=== PATIENT | female | born 1945 | race Caucasian/White ===

== ENCOUNTER 2019-07-06 05:17 | Inpatient (IN) | payer MEDICARE ==
[2019-07-04 15:17] LABS: BASOPHILS % 0.5 % (0.0-1.0); EOSINOPHILS # (AUTO) 0.1 (0.0-0.4); EOSINOPHILS % 0.9 % (0.0-6.0); HEMATOCRIT 45.2 % (34.2-44.1); HEMOGLOBIN 14.1 g/dL (12.0-16.0); LYMPHOCYTES # (AUTO) 1.3 (1.0-3.2); LYMPHOCYTES % 19.5 % (18.0-39.1); MEAN CORPUSCULAR HGB CONC 31.2 g/dL (31-35); MEAN CORPUSCULAR VOLUME 86.4 fL (81-99); MONOCYTES # (AUTO) 0.4 (0.2-0.8); MONOCYTES % 5.8 % (4.4-11.3); NEUTROPHILS # (AUTO) 4.8 (2.1-6.9); PLATELET COUNT 135 x10e3/uL (140-360); RED BLOOD COUNT 5.23 x10e6/uL (3.6-5.1)
[2019-07-04 15:27] LABS: INR 1.03; PROTHROMBIN TIME 13.7 seconds (11.9-14.5)
[2019-07-04 15:28] LABS: PARTIAL THROMBOPLASTIN TIME 31.2 seconds (23.8-35.5)
[2019-07-04 15:34] LABS: BLOOD UREA NITROGEN 16 mg/dL (7-26); BUN/CREATININE RATIO 21 (6-25); CALCIUM 9.3 mg/dL (8.4-10.2); CARBON DIOXIDE 27 mmol/L (22-29); CHLORIDE 103 mmol/L (98-107); CREATININE, SERUM 0.76 mg/dL (0.57-1.11); EST GLOMERULAR FILTRATION RATE > 60 ML/MIN (60-); GLUCOSE 103 mg/dL (74-118); SODIUM 141 mmol/L (136-145)
[2019-07-06] VITALS (11 sets, daily range): BP systolic 122–147; BP diastolic 45–61
[~2019-07-06] VITALS: Ht 167.6 cm; Wt 44.0 kg
[~2019-07-06 05:17] MED LIST: BACTROBAN OINT22 GM EXT; Z.0.TOPROL XL25 MG PO; Z.0.VICODIN 5-5001 E PO
--- OUTSIDE RECORDS SUMMARY | 2019-07-06 05:24 | XMS REPORT | Continuity of Care Document ---
Author Author [facility] Address [address] [place] [address] ;ext= Care Team Providers Care Thermal Molder Name Role Phone MARIFER GOLDBERG Admkyles MARIFER [facility] Admission Diagnosis Code Admission Diagnosis Date OTHER HYPERLIPIDEMIA Social History Element Description Code Description Smoking Status Code System Start Date End Date Smoking Status [id number] Current some day smoker SNOMED-CT Problems Code Code System Problem Name Start Date End Date Status 60190402 SNOMED-CT Contusion of chest 02/27/2018 Active 03979587 SNOMED-CT Abdominal pain 01/05/2017 Active 558042542 SNOMED-CT Dizziness 08/01/2016 Active 607812608 SNOMED-CT Syncope 07/31/2016 Active 12027209 SNOMED-CT Urinary tract infectious disease 07/31/2016 Active 659498736 SNOMED-CT Platelet count below reference range 2014 Active 25991401 SNOMED-CT Ventricular fibrillation 2015 Active 795216577 SNOMED-CT [place] Unknown Active 46504545 SNOMED-CT Myocardial infarction Unknown Active 66163332 SNOMED-CT Hypertensive disorder Unknown Active 45440930 SNOMED-CT Hyperlipidemia Unknown Active Medications RxNorm Medication Dose Route Instructions Indications Start Date End Date Status 064998 24 HR metoprolol succinate 25 MG Extended Release Oral Tablet 12.5 MG ORAL ORAL ONCE A DAY 11/26/2014 Active ASPIRIN TABLET CHEWABLE 81 MG ORAL ORAL ONCE A DAY 11/24/2014 Active 183671 atorvastatin 40 MG Oral Tablet 20 MG ORAL ORAL EVERY NIGHT AT BED TIME 11/24/2014 Active 736980 clopidogrel 75 MG Oral Tablet 75 milligram oral orally every day Active 07616 Lisinopril 2.5 milligram oral orally every day Active Allergies Code Code System Allergy Substance Type Reaction Severity Start Date End Date Status 7986 RXNorm Penicillins Drug allergy Swelling (Severe Allergic Rxn) Moderate Active 042306 RXNorm Levaquin Drug intolerance Syncope Moderate Active Results Laboratory Results Order: CMP COMPREHENSIVE METABOLIC PANEL Specimen Source: BLOOD Body Site: [facility] Test Result Flag Range Unit Date 1Glucose 109 75-110 mg/dl 04/27/2018 10:56 1BUN 15 6.0-17.0 mg/dl 04/27/2018 10:56 1Creatinine 0.6 0.4-1.2 mg/dl 04/27/2018 10:56 1Sodium 141 137-145 mmol/l 04/27/2018 10:56 1Potassium 4 3.5-5.0 mmol/l 04/27/2018 10:56 1Chloride 104 98-107 mmol/l 04/27/2018 10:56 1CO2 31 H 22-30 mmol/l 04/27/2018 10:56 1Calcium 9.1 8.4-10.2 mg/dl 04/27/2018 10:56 1T Protein 7.8 5.1-8.7 gm/dl 04/27/2018 10:56 1Albumin 4 3.5-4.6 gm/dl 04/27/2018 10:56 1A/G Ratio 1.1 1.1-2.2 % 04/27/2018 10:56 1AST (SGOT) 19 11-36 U/L 04/27/2018 10:56 1ALT (SGPT) 19 11-40 U/L 04/27/2018 10:56 1Alkaline Phos 135 H 47-114 U/L 04/27/2018 10:56 1Total Bilirubin 0.6 0.2-1.2 mg/dl 04/27/2018 10:56 1Globulin 3.8 H 2.3-3.5 gm/dl 04/27/2018 10:56 1Calcium, Corrected 9.1 8.4-10.2 mg/dl 04/27/2018 10:56 Note: Various formulas exist for corrected serum calcium results, each yielding different values. This corrected result was based on the formula: Corrected Calcium=SerumCalcium + [0.8 * ( 4 - SerumAlbumin)] 1EGFR if >60 mL/min/1.73m^2 04/27/2018 10:56 1EGFR if Non- >60 mL/min/1.73m^2 04/27/2018 10:56 Note: Estimated Glomerular Filtration Rate (eGFR) Reference Intervals Decision Points for 18 years and older and average body mass: >=60 Does not exclude kidney disease. 30 - 59 Suggests moderate chronic kidney disease and indicates the need for further investigation including assessment of proteinuria and cardiovascular factors. < 30 Usually indicates a need for referral for assessment and management of chronic kidney failure. * Performing Lab Footnotes:* [address] [place] [address] - [id number] [facility] [address] - MD: DIRECTOR WHIT MILLER Order: CORONARY RISK Specimen Source: BLOOD Body Site: [facility] Test Result Flag Range Unit Date 1Triglycerides 141 0-149 mg/dl 04/27/2018 10:56 Note: Trig. Interpretation Guide: Normal: < 150 mg/dl Borderline High: 150 - 199 mg/dl High: 200 - 499 mg/dl Very High: >=500 mg/dl 1Cholesterol 113 0-198 mg/dl 04/27/2018 10:56 1HDL 42 35-86 mg/dl 04/27/2018 10:56 77468-2 1Cholesterol.in LDL:MCnc:Pt:Ser/Plas:Qn:Direct assay 66 0-99 mg/dl 04/27/2018 10:56 Note: Direct LDL Intrepretations: Optimal: <100 mg/dl Suspect: 100 - 129 mg/dl Borderline: 130 - 159 mg/dl High: 160 - 189 mg/dl Very High: >190 mg/dl 1Risk Factor 2.7 0.0-4.4 04/27/2018 10:56 Note: Risk Factor Men Women Risk Factor 3.4 3.3 1/2 Average 5.0 4.4 Average 9.6 7.1 2X Average 24.0 11.0 3X Average 1vLDL 28 20-50 mg/dl 04/27/2018 10:56 * Performing Lab Footnotes:* [facility] - [id number] - [address] [place] [address] [place] - MD: DIRECTOR WHIT MILLER Vital Signs * No data in the system Advance Directives PT HAS NEITHER Directive Type Effective Date Lead Database Administrator Notes Supporting Document Name Address Phone No Directive Type specified 08/06/2012 21:27 Not Specified Not Specified Not Specified None No Patient does NOT have Living Will Directive Type Effective Date Lead Database Administrator Notes Supporting Document Name Address Phone No Directive Type specified 02/23/2017 10:23 Not Specified Not Specified Not Specified None No No Directive Type specified 02/23/2017 10:23 Not Specified Not Specified Not Specified None No Family History Relationship: Half Sister Health Problem Age At Onset Notes BREAST CANCER Relationship: Mother Health Problem Age At Onset Notes DIABETES Plan of Care * No data in the system Procedures * No data in the system Encounters * No data in the system Immunizations * No data in the system Functional Status * No data in the system Hospital Discharge Instructions * No data in the system
--- OUTSIDE RECORDS SUMMARY | 2019-07-06 05:24 | XMS REPORT ---
Author Author [facility] Address Unknown Phone Unavailable Care Team Providers Care Cell Operator Name Role Phone Omayra ESACLONA Unavailable Unavailable MOE DE LOS SANTOS Unavailable Unavailable Omayra GOLDBERG Unavailable Unavailable Mag [place]O Unavailable Unavailable Gloria GRAY Unavailable Unavailable OFELIA FRAZIER Unavailable Unavailable Problems This patient has no known problems. Allergies, Adverse Reactions, Alerts This patient has no known allergies or adverse reactions. Medications This patient has no known medications. Results Test Description Test Time Test Comments Text Results Atomic Results Result Comments THYROID 2019-06-21 08:43:00 [place] [address] Patient Name: SHAUN HANKINS MR #: [id number] : 1945 Age/Sex: 74/F Req #: [id number] Adm Physician: Ordered by: WANDA ESCALONA MD Report #: [id number] Location: Room/Bed: Procedure: [id number] US/US THYROID Exam Date: 06/20/19 Exam Time: 165 REPORT STATUS: Signed Thyroid ultrasound. History: Hyperthyroidism. Com parison: None available. Discussion: Transverse and longitudinal images of the thyroid were obtained demonstrating diffusely heterogeneous echogenicity of the thyroid. The right thyroid lobe measures 5.0 x 1.8 x 2.2 cm. An oval hyperechoic solid nodule is present in the upper pole measuring 1.6 x 1.2 x 1.6 cm. A second mass with large shadowing calcification is noted in the interpolar region measuring 1.7 x 1.6 x 2.1 cm. A third heterogeneous solid mass is present in the lower pole containing punctate calcifications measuring 2.9 x 1.8 x 2.1 cm. The left lobe measures 4.8 x 1.8 x 1.7 cm. An oval solid heterogeneous nodule is present in the interpolar region measuring 2.3 x 1.7 x 1.7 cm. The isthmus is within normal limits, measuring 2 mm. IMPRESSION: Multiple right and single left solid nodules. Ultrasound- guided FNA of the largest right and left lesion may be performed. Signed by: Abhishek Bryant on 06/21/2019 8:50 AM Dictated By: ABHISHEK BRYANT MD 0850 Transcribed By: KWAN on 06/21/19 0850 COPY TO: WANDA ESCALONA MD CTA NECK 2019-06-20 18:20:00 [place] [address] Patient Name: SHAUN HANKINS MR #: [id number] : 1945 Age/Sex: 74/F Req #: [id number] Adm Physician: Ordered by: MOE DE LOS SANTOS MD Report #: [id number] Location: CT Room/Bed: Procedure: [id number] CT/CTA NECK Exam Date: 06/20/19 Exam Time: 1720 REPORT STATUS: Signed CTA NECK HISTORY: Carotid stenosis COMPARISON: Thyroid ult rasound and chest radiograph 06/20/2019 TECHNIQUE: CTA of the neck was performed with intravenous iodine based contrast. Coronal, sagittal, and oblique maximum intensity projection reformations were created. One or more of the following dose reduction techniques were used: Automated exposure control, adjustment of the mA and/or kV according to patient size, and/or utilization of iterative reconstruction technique. DISCUSSION: If present, any cervical carotid stenosis will be measured as a percentage relative to the [place] artery distal to the stenosis (NASCET). There is diffuse calcified atherosclerosis throughout the aortic arch and proximal great vessels. Right Carotid: Surgical clips are seen adjacent to the right carotid bulb. Severe calcified plaque at the right carotid bulb causes severe, critical stenosis (up to 90%) of the proximal right internal carotid artery. Mild noncalcified plaque is seen throughout the right common carotid artery without significant stenosis. Left Carotid: Moderate calcified plaque at the left carotid bulb causes 50-69% focal stenosis in the proximal left internal carotid artery. Mild noncalcified plaque is seen throughout the left common carotid artery without significant stenosis. Right vertebral artery: Mild calcified plaque at the right vertebral artery ostium does not cause significant stenosis. Left vertebral artery: Mild calcified plaque in the left vertebral artery ostium and V2 segment does not cause significant stenosis. The intracranial arterial vasculature is is partially imaged. Minimal bilateral carotid siphon calcified plaque is present without significant stenosis. A small fenestration is seen in the lower basilar artery. Anterior communicating artery is present. Additional findings: There is mild generalized cerebral volume loss. Mild emphysematous changes are seen in the upper lungs. Multinodular, heterogeneous thyroid goiter can be correlated with ultrasound. There are mild to moderate degenerative changes throughout the spine. IMPRESSION: 1. Severe, up to 90% focal stenosis of the proximal right internal carotid artery due to calcified plaque. Surgical clips are seen adjacent to the right carotid bulb. 2. Focal 50-69% stenosis of the proximal left internal carotid artery due to calcified plaque. 3. Mild bilateral common carotid artery noncalcified plaque without significant stenosis. 4. Minimal bilateral cervical vertebral artery calcified plaque without significant stenosis. Signed by: Dr. Nolan Vo M.D. on 06/20/2019 6:36 PM Dictated By: NOLAN VO MD 35 Transcribed By: KWAN on 06/20/191835 COPY TO: MOE DE LOS SANTOS MD CHEST 2 VIEWS 2019-06-20 16:50:00 [facility] [place] [address] Patient Name: SHAUN HANKINS MR #: [id number] : 1945 Age/Sex: 74/F Req #: [id number] Adm Physician: Ordered by: WANDA ESCALONA MD Report #: [id number] Location: US Room/Bed: Procedure: [id number] DX/CHEST 2 VIEWS Exam Date: Exam Time: REPORT STATUS: Signed EXAMINATION: CHEST 2 VIEWS INDICATION: Weight loss COMPARISON: None FINDINGS: LINES/TUBES:None LUNGS:The lungs are hyperinflated. Mild bilateral upper lobe predominant emphysematous changes. No focal consolidation or pulmonary edema. PLEURA:No pleural effusion or pneumothorax. MEDIASTINUM:The cardiomediastinal silhouette appears normal in size and shape. Atherosclerotic calcifications of the thoracic aorta. BONES/SOFT TISSUES:No acute osseous injury. Degenerative changes of the visualized spine. ABDOMEN:No free air under the diaphragm. IMPRESSION: Hyperinflated lungs with emphysematous changes. No focal pneumonia or pulmonary edema. Signed by: Yoni Hubbard MD on 06/20/2019 4:51 PM Dictated By: YONI HUBBARD MD 50 Transcribed By: KWAN on 06/20/191650 COPY TO: WANDA ESCALONA MD CORONARY RISK 2018-04-27 11:32:00 Triglycerides (test code=TRIG) 141 mg/dl 0-149 Trig. Interpretation Guide: Normal: < 150 mg/dl Borderline High: 150 - 199 mg/dl High: 200 - 499 mg/dl Very High: >=500 mg/dl Cholesterol (test code=CHOL) 113 mg/dl 0-198 HDL (test code=HDL) 42 mg/dl 35-86 dLDL (test code=DILDL) 66 mg/dl 0-99 Direct LDL Intrepretations: Optimal: <100 mg/dl Suspect: 100 - 129 mg/dl Borderline: 130 - 159 mg/dl High: 160 - 189 mg/dl Very High: >190 mg/dl Risk Factor (test code=RFACT) 2.7 0.0-4.4 Risk Factor Men Women Risk Factor 3.4 3.3 1/2 Average 5.0 4.4 Average 9.6 7.1 2X Average 24.0 11.0 3X Average vLDL (test code=VLDL) 28 mg/dl 20-50 [id number] 11:31:00* Test Item Value Reference Range Comments Glucose (test code=GLU) 109 mg/dl 75-110 BUN (test code=BUN) 15.0 mg/dl 6.0-17.0 Creatinine (test code=CREA) 0.6 mg/dl 0.4-1.2 Sodium (test code=NA) 141 mmol/l 137-145 Potassium (test code=K) 4.0 mmol/l 3.5-5.0 Chloride (test code=CL) 104 mmol/l 98-107 CO2 (test code=CO2) 31 mmol/l 22-30 Calcium (test code=CALC) 9.1 mg/dl 8.4-10.2 T Protein (test code=TP) 7.8 gm/dl 5.1-8.7 Albumin (test code=ALB) 4.0 gm/dl 3.5-4.6 A/G Ratio (test code=AGRAT) 1.1 % 1.1-2.2 AST (SGOT) (test code=AST) 19 U/L 11-36 ALT (SGPT) (test code=ALT) 19 U/L 11-40 Alkaline Phos (test code=ALKP) 135 U/L 47-114 Total Bilirubin (test code=TBIL) 0.6 mg/dl 0.2-1.2 Globulin (test code=GLOBU) 3.8 gm/dl 2.3-3.5 Calcium, Corrected (test code=CALCCORR) 9.1 mg/dl 8.4-10.2 Various formulas exist for corrected serum calcium results, each yielding different values. This corrected result was based on the formula: Corrected Calcium=SerumCalcium + [0.8 * ( 4 - SerumAlbumin)] EGFR if (test code=EGFRAA) >60 mL/min/1.73m\\S\\2 EGFR if Non- (test code=EGFRNA) >60 mL/min/1.73m\\S\\2 Estimated Glomerular Filtration Rate (eGFR) Reference Intervals Decision Points for 18 years and older and average body mass: >=60 Does not exclude kidney disease. 30 - 59 Suggests moderate chronic kidney disease and indicates the need for further investigation including assessment of proteinuria and cardiovascular factors. < 30 Usually indicates a need for referral for assessment and management of chronic kidney failure. XR RIBS UNILATERAL/ PA [id number] 18:43:42EXAMINATION: XR RIBS UNILATERAL/ PA CHESTINDICATION: TRAUMA: Multiple Traumatic Injuriespain s/p fallCOMPARISON: Chest x-ray 07/31/2016FINDINGS: AP viewTUBES and LINES: None.LUNGS: Lungs are hyper inflated. Lungs are clear. There is mild prominenceof the central pulmonary vasculature, consistent with pulmonary venouscongestion.PLEURA: No pleural effusion or pneumothorax.HEART AND MEDIASTINUM: The cardiomediastinal silhouette is unremarkable.AtherosclerosisBONES AND SOFT TISSUES: No acute osseous lesion. Soft tissues areunremarkable.UPPER ABDOMEN: No free air under the diaphragm.IMPRESSION:Emphysema with mild central pulmonary venous congestion.No acute fractures.This final report was electronically signed by Dr Luis Rajput MD 02/27/2018 6:37 PMDictated By: ANTHONY RAJPUTate: 02/27/2018 18:37CT HEAD W/O [id number] 11:30:59CT HEAD WITHOUT CONTRAST:DATE OF EXAM: 02/25/2018INDICATION: fallNoncontrast CT head was performed. Dose reduction technique was employed usingautomated exposure control and adjustment of mA and/or kV according to patientsize. Total DLP 872 mGy-cm.Comparison is made to July 31, 2016.FINDINGS:No intracranial hemorrhage, mass effect or midline shift is identified. There octaviano left supraorbital scalp hematoma. It measures approximately 1.9 x 1.7 x 1.6cm. No fracture is identified.The ventricular system is normal in size and configuration. The basal cisternsare patent. Cortical atrophy is again present, stable and consistent with thepatient's age.The visualized portions of the mastoids, paranasal sinuses and orbits show nosignificant abnormality.IMPRESSION:Left supraorbital scalp hematoma with no evidence of fracture or acuteintracranial abnormality.This final report was e lectronically signed by Dr Jose Miguel Holden MD 02/25/201811:24 AMDictated By: JOSE MIGUEL RIOSDate: 02/25/2018 11:[id number] 11:55:00* Test Item Value Reference Range Comments Glucose (test code=GLU) 101 mg/dl 75-110 BUN (test code=BUN) 17.0 mg/dl 6.0-17.0 Creatinine (test code=CREA) 0.6 mg/dl 0.4-1.2 Sodium (test code=NA) 138 mmol/l 137-145 Potassium (test code=K) 4.3 mmol/l 3.5-5.0 Chloride (test code=CL) 99 mmol/l 98-107 CO2 (test code=CO2) 28 mmol/l 22-30 Calcium (test code=CALC) 9.7 mg/dl 8.4-10.2 T Protein (test code=TP) 7.1 gm/dl 5.1-8.7 Albumin (test code=ALB) 4.6 gm/dl 3.5-4.6 A/G Ratio (test code=AGRAT) 1.8 % 1.1-2.2 AST (SGOT) (test code=AST) 28 U/L 11-36 ALT (SGPT) (test code=ALT) 22 U/L 11-40 Alkaline Phos (test code=ALKP) 107 U/L 47-114 Total Bilirubin (test code=TBIL) 0.8 mg/dl 0.2-1.2 Globulin (test code=GLOBU) 2.5 gm/dl 2.3-3.5 Anion Gap (test code=GAP) 12 Calcium, Corrected (test code=CALCCORR) 9.2 mg/dl 8.4-10.2 Various formulas exist for corrected serum calcium results, each yielding different values. This corrected result was based on the formula: Corrected Calcium=SerumCalcium + [0.8 * ( 4 - SerumAlbumin)] EGFR if (test code=EGFRAA) >60 mL/min/1.73m\\S\\2 EGFR if Non- (test code=EGFRNA) >60 mL/min/1.73m\\S\\2 Estimated Glomerular Filtration Rate (eGFR) Reference Intervals Decision Points for 18 years and older and average body mass: >=60 Does not exclude kidney disease. 30 - 59 Suggests moderate chronic kidney disease and indicates the need for further investigation including assessment of proteinuria and cardiovascular factors. < 30 Usually indicates a need for referral for assessment and management of chronic kidney failure. CBC WITH AUTO [id number] 11:39:00* Test Item Value Reference Range Comments WBC (test code=WBC) 5.86 10\\S\\3/ul 4.80-10.80 RBC (test code=RBC) 5.28 10\\S\\6/ul 4.20-5.40 Hemoglobin (test code=HGB) 13.8 gm/dl 12.0-14.0 Hematocrit (test code=HCT) 43.7 % 37.0-47.0 MCV (test code=MCV) 82.8 fL 81.0-99.0 MCH (test code=MCH) 26.1 pg 27.0-31.0 MCHC (test code=MCHC) 31.6 gm/dl 33.0-37.0 RDW (test code=RDWVC) 15.3 % 11.5-14.5 Platelet (test code=PLT) 168 10\\S\\3/ul 130-400 MPV (test code=MPV) 11.4 fL 7.4-10.4 "NOT MEASURED" RESULTS ARE DISPLAYED WHEN THE INSTRUMENT HAS A SUPPRESSED OR UNREPORTABLE RESULT. THIS WILL MOST OFTEN HAPPEN WITH THE MPV WHEN THERE IS AN ABNORMAL PLATLET DISTRIBUTION DUE TO A CRI TICAL LOW VALUE OR PLATELET CLUMPING. NE% (test code=NE) 66.1 % 42.0-75.0 LY% (test code=LY) 24.2 % 13.0-42.0 MO% (test code=MO) 7.5 % 4.0-14.0 EO% (test code=EO) 1.2 % 1.0-3.0 BA% (test code=BA) 0.7 % 1.0-3.0 IG% (test code=IG%) 0.3 % 0.0-0.4 T3, [id number] 02:00:00* Test Item Value Reference Range Comments TOTAL T3 (test code=TT3) 1.38 ng/ml 0.97-1.69 THYROXINE (T4)2017-01-05 01:08:00* Test Item Value Reference Range Comments Thyroxine (T4) (test code=T4) 10.5 ug/dl 5.5-11.0 T3 [id number] 01:08:00* Test Item Value Reference Range Comments T3 Uptake (test code=T3UP) 29.8 % uptake 27.0-40.0 TSH (Ultra Sensitive)2017-01-05 01:08:00* Test Item Value Reference Range Comments TSH (test code=TSH) 4.19 mIU/L 0.47-4.68 [id number] 00:32:00* Test Item Value Reference Range Comments Glucose (test code=GLU) 122 mg/dl 75-110 BUN (test code=BUN) 17.0 mg/dl 6.0-17.0 Creatinine (test code=CREA) 0.7 mg/dl 0.4-1.2 Sodium (test code=NA) 144 mmol/l 137-145 Potassium (test code=K) 4.3 mmol/l 3.5-5.0 Chloride (test code=CL) 101 mmol/l 98-107 CO2 (test code=CO2) 30 mmol/l 22-30 Anion Gap (test code=GAP) 13 Calcium (test code=CALC) 9.9 mg/dl 8.4-10.2 T Protein (test code=TP) 7.7 gm/dl 5.1-8.7 Albumin (test code=ALB) 4.4 gm/dl 3.5-4.6 A/G Ratio (test code=AGRAT) 1.3 % 1.1-2.2 AST (SGOT) (test code=AST) 23 U/L 11-36 ALT (SGPT) (test code=ALT) 21 U/L 11-40 Alkaline Phos (test code=ALKP) 112 U/L 47-114 Total Bilirubin (test code=TBIL) 0.8 mg/dl 0.2-1.2 Globulin (test code=GLOBU) 3.3 gm/dl 2.3-3.5 Calcium, Corrected (test code=CALCCORR) 9.6 mg/dl 8.4-10.2 Various formulas exist for corrected serum calcium results, each yielding different values. This corrected result was based on the formula: Corrected Calcium=SerumCalcium + [0.8 * ( 4 - SerumAlbumin)] EGFR if (test code=EGFRAA) >60 mL/min/1.73m\\S\\2 EGFR if Non- (test code=EGFRNA) >60 mL/min/1.73m\\S\\2 Estimated Glomerular Filtration Rate (eGFR) Reference Intervals Decision Points for 18 years and older and average body mass: >=60 Does not exclude kidney disease. 30 - 59 Suggests moderate chronic kidney disease and indicates the need for further investigation including assessment of proteinuria and cardiovascular factors. < 30 Usually indicates a need for referral for assessment and management of chronic kidney failure. CBC WITH AUTO [id number] 00:16:00* Test Item Value Reference Range Comments WBC (test code=WBC) 11.4 k/ul 4.8-10.8 RBC (test code=RBC) 5.44 Millions/ul 4.20-5.40 Hemoglobin (test code=HGB) 14.1 gm/dl 12.0-14.0 Hematocrit (test code=HCT) 43.7 % 37.0-47.0 MCV (test code=MCV) 80.3 fL 81.0-99.0 MCH (test code=MCH) 25.9 pg 27.0-31.0 MCHC (test code=MCHC) 32.3 gm/dl 33.0-37.0 RDW (test code=RDWVC) 14.6 % 11.5-14.5 Platelet (test code=PLT) 188 k/ul 130-400 MPV (test code=MPV) 11.0 fL 7.4-10.4 NE% (test code=NE) 70.5 % 42.0-75.0 LY% (test code=LY) 23.5 % 13.0-42.0 MO% (test code=MO) 4.8 % 4.0-14.0 EO% (test code=EO) 0.8 % 1.0-3.0 BA% (test code=BA) 0.4 % 1.0-3.0 AUTO [id number] 07:01:00* Test Item Value Reference Range Comments CPK (test code=CPK) 30 U/L 30-135 TROPONIN-I [id number] 07:01:00* Test Item Value Reference Range Comments Troponin-I (test code=TROP) <0.012 ng/ml 0.000-0.034 The 99th Percentile URL is 0.034 ng/mL. The Joint Society of Cardiology/[place] [employer] (ESC/ACC) and the National Academy of Clinical Biochemistry Standards of Laboratory Practices (NACB) recommends that the diagnosis of AMI includes the presence of clinical history suggestive of Acute Coronary Syndrome (ACS) and a maximum concentration of cardiac troponin exceeding the 99th percentile of a normal reference population [upper reference limit (URL)] on at least one occasion during the first 24 hours after the clinical event. MYOGLOBIN, [id number] 07:01:00* Test Item Value Reference Range Comments Myoglobin (test code=ERICK) 74.4 ng/ml 0.0-61.5 Critical values were called to VIBHA Hendrickson by [id number] on 08/01/2016 07:01 AM. Results were read back by VIBHA Hendrickson. [id number] 07:01:00* Test Item Value Reference Range Comments CKMB (test code=CKMB) 0.69 ng/ml 0.00-2.37 URINALYSIS WITH [id number] 22:27:00* Test Item Value Reference Range Comments Color (test code=UCOLR) Yellow Clarity (test code=UCLAR) SL CLOUDY Glucose (test code=UGLUC) NEGATIVE NEGATIVE Bilirubin (test code=UBILI) NEGATIVE NEGATIVE Ketones (test code=UKET) NEGATIVE NEGATIVE Specific [place] (test code=USPGR) 1.025 1.005-1.030 Blood (test code=UBLD) TRACE-INTACT NEGATIVE PH (test code=UPH) 5.5 4.5-8.0 Protein (test code=UPROT) NEGATIVE NEGATIVE Urobilinogen (test code=U UROB) 0.2 >0.2 Nitrite (test code=UNITR) POSITIVE NEGATIVE Leukocyte Esterase (test code=ULEUK) NEGATIVE NEGATIVE WBC (test code=WBCUR) 2-4 0-5 RBC (test code=RBCUR) 2-4 0-5 Epithial Cells (test code=U EPI) 0-5 0-10 Mucous (test code=UMUC) None Seen None Seen Bacteria (test code=UBACT) 4+ None Seen,Trace Crystals Urine (test code=URCRYS) Few Amorphous Sediment None Seen TROPONIN-I [id number] 21:45:00* Test Item Value Reference Range Comments Troponin-I (test code=TROP) <0.012 ng/ml 0.000-0.034 The 99th Percentile URL is 0.034 ng/mL. The Joint Society of Cardiology/[place] [employer] (ESC/ACC) and the National Academy of Clinical Biochemistry Standards of Laboratory Practices (NACB) recommends that the diagnosis of AMI includes the presence of clinical history suggestive of Acute Coronary Syndrome (ACS) and a maximum concentration of cardiac troponin exceeding the 99th percentile of a normal reference population [upper reference limit (URL)] on at least one occasion during the first 24 hours after the clinical event. PT AND [id number] 19:18:00* Test Item Value Reference Range Comments Protime (test code=PT) 10.8 seconds 9.0-11.8 INR (test code=INR) 1.0 0.9-1.1 INR results are intended ONLY to monitor Oral Anticoagulant therapy in stablized patients. The INR Therapeutic Range is 2.0 - 3.0 Patients with a mechanical heart, the INR Range is 2.5 - 3.5 [id number] 19:18:00* Test Item Value Reference Range Comments aPTT (test code=PTT) 23.1 seconds 25.3-35.7 PRO-BNP(B-Type Natriuretic Peptide)2016-07-31 19:16:00* Test Item Value Reference Range Comments Pro-BNP(B-Peptide) (test code=PROBNP) 1470 pg/ml 0-125 RESULT CALLED TO DURAN ARITA RN/ER@0725//READBACK//J2 [id number] 19:16:00* Test Item Value Reference Range Comments CPK (test code=CPK) 40 U/L 30-135 TROPONIN-I [id number] 19:16:00* Test Item Value Reference Range Comments Troponin-I (test code=TROP) 0.021 ng/ml 0.000-0.034 The 99th Percentile URL is 0.034 ng/mL. The Joint Society of Cardiology/[place] [employer] (ESC/ACC) and the National Academy of Clinical Biochemistry Standards of Laboratory Practices (NACB) recommends that the diagnosis of AMI includes the presence of clinical history suggestive of Acute Coronary Syndrome (ACS) and a maximum concentration of cardiac troponin exceeding the 99th percentile of a normal reference population [upper reference limit (URL)] on at least one occasion during the first 24 hours after the clinical event. [id number] 19:13:00* Test Item Value Reference Range Comments Magnesium (test code=MG) 2.0 mg/dl 1.6-2.3 [id number] 19:13:00* Test Item Value Reference Range Comments Glucose (test code=GLU) 130 mg/dl 75-110 BUN (test code=BUN) 17.0 mg/dl 6.0-17.0 Creatinine (test code=CREA) 0.7 mg/dl 0.4-1.2 Sodium (test code=NA) 146 mmol/l 137-145 Potassium (test code=K) 4.3 mmol/l 3.5-5.0 Chloride (test code=CL) 101 mmol/l 98-107 CO2 (test code=CO2) 29 mmol/l 22-30 Anion Gap (test code=GAP) 16 Calcium (test code=CALC) 10.3 mg/dl 8.4-10.2 T Protein (test code=TP) 8.0 gm/dl 5.1-8.7 Albumin (test code=ALB) 5.1 gm/dl 3.5-4.6 A/G Ratio (test code=AGRAT) 1.8 % 1.1-2.2 AST (SGOT) (test code=AST) 24 U/L 11-36 ALT (SGPT) (test code=ALT) 32 U/L 11-40 Alkaline Phos (test code=ALKP) 127 U/L 47-114 Total Bilirubin (test code=TBIL) 0.8 mg/dl 0.2-1.2 Globulin (test code=GLOBU) 2.9 gm/dl 2.3-3.5 Calcium, Corrected (test code=CALCCORR) 9.4 mg/dl 8.4-10.2 Various formulas exist for corrected serum calcium results, each yielding different values. This corrected result was based on the formula: Corrected Calcium=SerumCalcium + [0.8 * ( 4 - SerumAlbumin)] EGFR if (test code=EGFRAA) >60 mL/min/1.73m\\S\\2 EGFR if Non- (test code=EGFRNA) >60 mL/min/1.73m\\S\\2 Estimated Glomerular Filtration Rate (eGFR) Reference Intervals Decision Points for 18 years and older and average body mass: >=60 Does not exclude kidney disease. 30 - 59 Suggests moderate chronic kidney disease and indicates the need for further investigation including assessment of proteinuria and cardiovascular factors. < 30 Usually indicates a need for referral for assessment and management of chronic kidney failure. CBC WITH AUTO [id number] 18:40:00* Test Item Value Reference Range Comments WBC (test code=WBC) 12.9 k/ul 4.8-10.8 RBC (test code=RBC) 5.80 Millions/ul 4.20-5.40 Hemoglobin (test code=HGB) 15.1 gm/dl 12.0-14.0 Hematocrit (test code=HCT) 46.3 % 37.0-47.0 MCV (test code=MCV) 79.8 fL 81.0-99.0 MCH (test code=MCH) 26.1 pg 27.0-31.0 MCHC (test code=MCHC) 32.7 gm/dl 33.0-37.0 RDW (test code=RDWVC) 14.9 % 11.5-14.5 Platelet (test code=PLT) 173 k/ul 130-400 MPV (test code=MPV) 10.0 fL 7.4-10.4 NE% (test code=NE) 78.5 % 42.0-75.0 LY% (test code=LY) 16.8 % 13.0-42.0 MO% (test code=MO) 3.5 % 4.0-14.0 EO% (test code=EO) 0.5 % 1.0-3.0 BA% (test code=BA) 0.7 % 1.0-3.0 NRBC, Auto (test code=NRBC_AUTO) 0 /100WBC 0-0
--- OUTSIDE RECORDS SUMMARY | 2019-07-06 05:24 | XMS REPORT | Continuity of Care Document ---
Author Author [facility] Address [address] [place] [address] ;ext= Care Team Providers Care [place] [employer] Name Role Phone MATIAS JUNIOR Admkyles MATIAS JUNIOR Attdhiraj NONE, AVAILABLE PCP Unavailable Hospital Admission Diagnosis Code Admission Diagnosis Date [id number] Injury of face Social History Element Description Code Description Smoking Status Code System Start Date End Date Smoking Status [id number] Current every day smoker SNOMED-CT Problems Code Code System Problem Name Start Date End Date Status 76848844 SNOMED-CT Contusion of chest 02/27/2018 Active 45471128 SNOMED-CT Abdominal pain 01/05/2017 Active 372007731 SNOMED-CT Dizziness 08/01/2016 Active 712226370 SNOMED-CT Syncope 07/31/2016 Active 76593170 SNOMED-CT Urinary tract infectious disease 07/31/2016 Active 682523327 SNOMED-CT Platelet count below reference range 2014 Active 13362296 SNOMED-CT Ventricular fibrillation 2014 Active 228188636 SNOMED-CT Falls Unknown Active 86692953 SNOMED-CT Myocardial infarction Unknown Active 50826621 SNOMED-CT Hypertensive disorder Unknown Active 78371089 SNOMED-CT Hyperlipidemia Unknown Active Medications RxNorm Medication Dose Route Instructions Indications Start Date End Date Status 112445 24 HR metoprolol succinate 25 MG Extended Release Oral Tablet 12.5 MG ORAL ORAL ONCE A DAY 11/26/2014 Active ASPIRIN TABLET CHEWABLE 81 MG ORAL ORAL ONCE A DAY 11/24/2014 Active 225637 atorvastatin 40 MG Oral Tablet 20 MG ORAL ORAL EVERY NIGHT AT BED TIME 11/24/2014 Active 828880 clopidogrel 75 MG Oral Tablet 75 milligram oral orally every day Active 78658 Lisinopril 2.5 milligram oral orally every day Active Acetaminophen Oral Disintegrating Tablet 500 milligram oral orally every 4 to 6 hours as needed. pain No Longer Active 388489 Ciprofloxacin 250 MG Oral Tablet 250 milligram oral orally every 12 hours (5 days) No Longer Active Allergies Code Code System Allergy Substance Type Reaction Severity Start Date End Date Status 7986 RXNorm Penicillins Drug allergy Swelling (Severe Allergic Rxn) Moderate Active 222049 RXNorm Levaquin Drug intolerance Syncope Moderate Active Results Radiology Results Order: [id number] CT HEAD W/O CONTRAST* Exam Completion Date:02/25/2018 10:54 CT HEAD WITHOUT CONTRAST:DATE OF EXAM: 02/25/2018INDICATION: fallNoncontrast CT h ead was performed. Dose reduction technique was employed usingautomated exposure control and adjustment of mA and/or kV according to patientsize. Total DLP 872 mGy-cm.Comparison is made to July 31, 2016.FINDINGS:No intracranial hemorrhage, mass effect or midline shift is identified. There octaviano left supraorbital scalp hematoma. It measures approximately 1.9 x 1.7 x 1.6cm. No fracture is identified . The ventricular system is normal in size and configuration. The basal cisterns are patent. Cortical atrophy is again present, stable and consistent with thepat ient's age. The visualized portions of the mastoids, paranasal sinuses and orbit s show nosignificant abnormality.IMPRESSION:Left supraorbital scalp hematoma wit h no evidence of fracture or acuteintracranial abnormality.This final report was electronically signed by Dr Devorah Holden MD 02/25/201811:24 AMDictated By: DEVORAH LOPEZDate: 02/25/2018 11:24 Vital Signs Vitals Value Date Body Temperature 98 F 02/25/2018 Pulse Rate 116 02/25/2018 Respiratory Rate 18 02/25/2018 O2% BldC Oximetry 97 02/25/2018 BP Systolic 161 mmHg 02/25/2018 BP Diastolic 74 mmHg 02/25/2018 Height 65 in 02/25/2018 Weight Measured 100 lbs 02/25/2018 BSA (Body Surface Area) 1.13195 02/25/2018 BMI (Body Mass Index) 16.6 02/25/2018 Advance Directives PT HAS NEITHER Directive Type Effective Date Signal Inspector Notes Supporting Document Name Address Phone No Directive Type specified 08/06/2012 21:27 Not Specified Not Specified Not Specified None No Patient does NOT have Living Will Directive Type Effective Date Signal Inspector Notes Supporting Document Name Address Phone No [...] * No data in the system Procedures Code Code System Procedure Name Target Site Date of Procedure CT HEAD W/O CONTRAST 02/25/2018 11:31 Encounters Date Code Diagnosis Status (ICD10) - [id number] CONTUS LT EYELD PERIOCULR AREA INIT Active Immunizations * No data in the system Functional Status * No data in the system Hospital Discharge Instructions * Discharge Instructions 2* Discharge Diagnosis* hematoma * Important Information* Consult your physician or return to the Emergency Department immediately if worse, if not better as expected, or if any problems arise. * Follow Up Care* Yes * Important Information* Please understand that you have received care only on an emergency basis. If your condition does not improve, you should call your personal physician for follow-up care. If you do not have a physician, you may call the referred physician listed. * If you have questions about your care or these discharge instructions, you may call the Emergency Department. Please take your discharge paperwork with you to any follow-up appointments. * Follow Up Care* Patient To Schedule * Follow-Up With:* Primary Care Physician * Activity Level* As tolerated, unrestricted * Prescriptions Given Via:* N/A
--- OUTSIDE RECORDS SUMMARY | 2019-07-06 05:24 | XMS REPORT | Continuity of Care Document ---
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 Name Role Phone LAZARA OCHOA LAZARA OCHOA Attdhiraj NONE, AVAILABLE PCP Unavailable Hospital Admission Diagnosis Code Admission Diagnosis Date [id number] Chest pain Social History Element Description Code Description Smoking Status Code System Start Date End Date Smoking Status [id number] Heavy tobacco smoker SNOMED-CT Problems Code Code System Problem Name Start Date End Date Status 40550994 SNOMED-CT Contusion of chest 02/27/2018 Active 09034731 SNOMED-CT Abdominal pain 01/05/2017 Active 058370732 SNOMED-CT Dizziness 08/01/2016 Active 210417299 SNOMED-CT Syncope 07/31/2016 Active 68592370 SNOMED-CT Urinary tract infectious disease 07/31/2016 Active 824705872 SNOMED-CT Platelet count below reference range 2014 Active 45433648 SNOMED-CT Ventricular fibrillation 2015 Active 378091549 SNOMED-CT Falls Unknown Active 01656251 SNOMED-CT Myocardial infarction Unknown Active 68985801 SNOMED-CT Hypertensive disorder Unknown Active 19618229 SNOMED-CT Hyperlipidemia Unknown Active Medications RxNorm Medication Dose Route Instructions Indications Start Date End Date Status 670306 24 HR metoprolol succinate 25 MG Extended Release Oral Tablet 12.5 MG ORAL ORAL ONCE A DAY 11/26/2014 Active ASPIRIN TABLET CHEWABLE 81 MG ORAL ORAL ONCE A DAY 11/24/2014 Active 790452 atorvastatin 40 MG Oral Tablet 20 MG ORAL ORAL EVERY NIGHT AT BED TIME 11/24/2014 Active 904515 clopidogrel 75 MG Oral Tablet 75 milligram oral orally every day Active 40794 Lisinopril 2.5 milligram oral orally every day Active Allergies Code Code System Allergy Substance Type Reaction Severity Start Date End Date Status 7986 RXNorm Penicillins Drug allergy Swelling (Severe Allergic Rxn) Moderate Active 999117 RXNorm Levaquin Drug intolerance Syncope Moderate Active Results Radiology Results Order: [id number] XR RIBS UNILATERAL/ PA CHEST* Exam Completion Date:02/27/2018 17:34 EXAMINATION: XR RIBS UNILATERAL/ PA CHEST INDICATION: TRAUMA: Multiple Traum atic Injuriespain s/p fall COMPARISON: Chest x-ray 07/31/2016 FINDINGS: AP view TUBES and LINES: None.LUNGS: Lungs are hyper inflated. Lungs are clear . There is mild prominenceof the central pulmonary vasculature, consistent wit h pulmonary venouscongestion.PLEURA: No pleural effusion or pneumothorax.HEART AND MEDIASTINUM: The cardiomediastinal silhouette is unremarkable. Atheroscl erosisBONES AND SOFT TISSUES: No acute osseous lesion. Soft tissues areunremar kable.UPPER ABDOMEN: No free air under the diaphragm. IMPRESSION: Emphysema w ith mild central pulmonary venous congestion.No acute fractures.This final repor t was electronically signed by Dr Luis Guardado MD 02/27/2018 6:37 PMDictated By: Day GUARDADO: 02/27/2018 18:37 Vital Signs Vitals Value Date Pulse Rate 101 02/27/2018 Respiratory Rate 18 02/27/2018 O2% BldC Oximetry 96 02/27/2018 BP Systolic 134 mmHg 02/27/2018 BP Diastolic 56 mmHg 02/27/2018 Body Temperature 98 F 02/27/2018 Height 64 in 02/27/2018 Weight Measured 120 lbs 02/27/2018 BSA (Body Surface Area) 1.72993 02/27/2018 BMI (Body Mass Index) 20.7 02/27/2018 Advance Directives PT HAS NEITHER Directive Type Effective Date Valet Parking Attendant Notes Supporting Document Name Address Phone No Directive Type specified 08/06/2012 21:27 Not Specified Not Specified Not Specified None No Patient does NOT have Living Will Directive Type Effective Date Valet Parking Attendant Notes Supporting Document Name Address Phone No [...] Procedure Name Target Site Date of Procedure XR RIBS UNILATERAL/ PA CHEST 02/27/2018 18:43 Encounters Date Code Diagnosis Status (ICD10) - [id number] CONTUSION LEFT BREAST INITIAL ENC Active Immunizations * No data in the system Functional Status * No data in the system Hospital Discharge Instructions * Discharge Instructions 2* Discharge Diagnosis* contusion in adults * Important Information* Consult your physician or [...] with you to any follow-up appointments. * Follow-Up With:* Primary Care Physician * Follow-Up Notes:* PCP MEL * Activity Level* As tolerated, unrestricted * Diet* Regular * Prescriptions Given Via:* Printed and given to patient/caregiver. * Patient Teaching* Patient education provided * Activities * Dietary
[2019-07-06] MEDS ORDERED: VANCOMYCIN 1GM/NS 250 ML 250 ML ONE (06:14)
[2019-07-06] MEDS ORDERED: MUPIROCIN 2% OINT 22 GM TUBE ONE (06:18)
[2019-07-06] MEDS ORDERED: PROTAMINE SULFATE 10 MG/ML 5 ML VIAL ONE (06:18)
[2019-07-06] MEDS ORDERED: HEPARIN SOD (PORCINE) 1000 UNIT/ML 30ML ONE (06:18)
[2019-07-06] MEDS ORDERED: SODIUM CHLORIDE 0.9% 500ML 500 ML ONE (06:18)
[2019-07-06] MEDS ORDERED: THROMBIN FOR SOLN 5,000 UNIT VIAL ONE (06:18)
[2019-07-06] MEDS ORDERED: LIDOCAINE HCL 1% 2 ML AMP ONE (06:18)
[2019-07-06] MEDS ORDERED: HEPARIN SOD/SOD CHLORIDE 1,000 ML ONE (06:37)
[2019-07-06 11:00] LABS: BASOPHILS % 0.5 % (0.0-1.0); EOSINOPHILS % 0.5 % (0.0-6.0); HEMATOCRIT 39.1 % (34.2-44.1); HEMOGLOBIN 12.7 g/dL (12.0-16.0); LYMPHOCYTES # (AUTO) 0.8 (1.0-3.2); LYMPHOCYTES % 13.8 % (18.0-39.1); MEAN CORPUSCULAR HEMOGLOBIN 27.1 pg (28-32); MEAN CORPUSCULAR HGB CONC 32.5 g/dL (31-35); MEAN CORPUSCULAR VOLUME 83.5 fL (81-99); MONOCYTES # (AUTO) 0.1 (0.2-0.8); MONOCYTES % 1.4 % (4.4-11.3); NEUTROPHILS # (AUTO) 4.8 (2.1-6.9); NEUTROPHILS % 83.5 % (38.7-80.0); PLATELET COUNT 111 x10e3/uL (140-360); RED BLOOD COUNT 4.68 x10e6/uL (3.6-5.1)
[2019-07-06 11:14] LABS: ALBUMIN 3.2 g/dL (3.5-5.0); ALBUMIN/GLOBULIN RATIO 1.3 (0.8-2.0); ALKALINE PHOSPHATASE 97 IU/L (40-150); ANION GAP 14.3 mmol/L (8-16); BLOOD UREA NITROGEN 15 mg/dL (7-26); BUN/CREATININE RATIO 22 (6-25); CALCIUM 8.3 mg/dL (8.4-10.2); CARBON DIOXIDE 21 mmol/L (22-29); CHLORIDE 106 mmol/L (98-107); CREATININE, SERUM 0.69 mg/dL (0.57-1.11); EST GLOMERULAR FILTRATION RATE > 60 ML/MIN (60-); GLUCOSE 140 mg/dL (74-118); POTASSIUM 4.3 mmol/L (3.5-5.1); SODIUM 137 mmol/L (136-145)
[2019-07-06 11:15] LABS: ALANINE AMINOTRANSFERASE < 6 IU/L (0-55)
[2019-07-06] MEDS ORDERED: MORPHINE SULFATE 2 MG/ML SYR 1ML ONE (13:23)
[2019-07-06] MEDS ORDERED: ONDANSETRON HCL INJ 2MG/ML 2ML 2 MG/ML VIAL ONE ×2 (13:25→14:09)
[2019-07-06] MEDS ORDERED: LABETALOL HCL 5 MG/ML 20ML VIAL IV PRN (13:30)
[2019-07-06] MEDS ORDERED: HYDROCODONE/APAP 5MG-325MG TAB PO PRN (13:30)
[2019-07-06] MEDS ORDERED: MORPHINE SULFATE 2 MG/ML SYR 1ML IV PRN (13:30)
[2019-07-06] MEDS ORDERED: ACETAMINOPHEN 1000 MG/100 ML IV ONE (14:09)
[2019-07-06] MEDS ORDERED: HYDRALAZINE HCL 20 MG/ML VIAL ONE (14:09)
[2019-07-06] MEDS ORDERED: ROCURONIUM BROMIDE 10 MG/ML 5ML VIAL ONE (14:09)
[2019-07-06] MEDS ORDERED: SEVOFLURANE INHAL SOLN 250 ML PEN BTL ONE (14:09)
[2019-07-06] MEDS ORDERED: PROPOFOL IV EMULSION 10 MG/ML 20 ML VIAL ONE (14:09)
[2019-07-06] MEDS ORDERED: DEXAMETHASONE SOD PHOS INJ 4 MG/ML VIAL ONE (14:09)
[2019-07-06] MEDS ORDERED: LIDOCAINE HCL 2% LOCAL INJ 5 ML SDV VIAL INJ ONE (14:09)
[2019-07-06] MEDS ORDERED: METOPROLOL TARTRATE INJ 1 MG/ML VIAL ONE (14:09)
[2019-07-06] MEDS ORDERED: KETOROLAC TROMETHAMINE 30 MG/ML VIAL ONE (14:09)
[2019-07-06] MEDS: SODIUM CHLORIDE 0.9% 1000ML 1,000 ML IV SCH ×2 (18:18→23:35)
--- NOTE | 2019-07-06 18:50 | Consultation ---
DATE OF CONSULTATION: 07/06/2019 Pulmonary Critical Care Consultation CHIEF COMPLAINT: COPD and recent carotid endarterectomy. HISTORY OF PRESENT ILLNESS: The patient is a 74-year-old woman. She has a history of COPD. She uses inhalers at home. She also has a history of a prior carotid endarterectomy. She was found to have recurrent stenosis in her right carotid artery and went for a carotid endarterectomy redo today. She tolerated the procedure well. Shunt was used. She had no intraoperative complications. PAST SURGICAL HISTORY: 1. Status post hysterectomy. 2. Status post . 3. Prior right carotid endarterectomy. PAST MEDICAL HISTORY: 1. COPD. 2. Hypertension. 3. Peripheral vascular disease. ALLERGIES: THE PATIENT IS ALLERGIC TO PENICILLIN. SOCIAL HISTORY: The patient is not a smoker or drinker. REVIEW OF SYSTEMS: The patient is afebrile. The patient has no headache. She does have some pain at the surgical site. She is not complaining of chest pain. She has no difficulty breathing. There is no cough. She has no abdominal pain. She has no leg swelling. PHYSICAL EXAMINATION: VITAL SIGNS: The patient is afebrile. The vital signs are stable. HEENT: Shows no facial swelling or erythema. CARDIAC: Reveals regular rate and rhythm with normal S1 and S2. LUNGS: Auscultation of lungs shows clear breath sounds bilaterally. There is no wheezing. ABDOMEN: Soft, nontender. There is no rebound or guarding. EXTREMITIES: Show no leg edema or calf tenderness. IMPRESSION: 1. Chronic obstructive pulmonary disease. 2. Recent carotid endarterectomy. 3. Hypertension. 4. Peripheral vascular disease. PLAN: 1. Continue to monitor blood pressure. 2. Continue to monitor neurological status. 3. Oxygen as needed. 4. Rescue inhaler as needed. Rosendo Curtis MD [facility]/EVANS /[id number]
[2019-07-06] MEDS ORDERED: MIDAZOLAM HCL 2 MG/2 ML VIAL ONE (19:38)
[2019-07-06] MEDS ORDERED: FENTANYL CITRATE/PF 100MCG/2 ML INJ ONE (19:38)
[2019-07-06] MEDS ORDERED: VANCOMYCIN 1GM/NS 250 ML 250 ML IV ONE (20:00)
[2019-07-07] VITALS (15 sets, daily range): BP systolic 90–154; BP diastolic 41–100
[2019-07-07 04:40] LABS: BASOPHILS % 0.2 % (0.0-1.0); EOSINOPHILS % 0.2 % (0.0-6.0); HEMATOCRIT 39.9 % (34.2-44.1); HEMOGLOBIN 12.5 g/dL (12.0-16.0); LYMPHOCYTES # (AUTO) 1.5 (1.0-3.2); LYMPHOCYTES % 17.2 % (18.0-39.1); MEAN CORPUSCULAR HEMOGLOBIN 26.8 pg (28-32); MEAN CORPUSCULAR HGB CONC 31.3 g/dL (31-35); MEAN CORPUSCULAR VOLUME 85.4 fL (81-99); MONOCYTES # (AUTO) 0.8 (0.2-0.8); MONOCYTES % 8.8 % (4.4-11.3); NEUTROPHILS # (AUTO) 6.5 (2.1-6.9); NEUTROPHILS % 73.4 % (38.7-80.0); PLATELET COUNT 115 x10e3/uL (140-360); RED BLOOD COUNT 4.67 x10e6/uL (3.6-5.1); RED CELL DISTRIBUTION WIDTH 14.4 % (11.7-14.4)
[2019-07-07 04:57] LABS: ANION GAP 13.6 mmol/L (8-16); BLOOD UREA NITROGEN 17 mg/dL (7-26); BUN/CREATININE RATIO 24 (6-25); CALCIUM 8.5 mg/dL (8.4-10.2); CARBON DIOXIDE 25 mmol/L (22-29); CHLORIDE 106 mmol/L (98-107); CREATININE, SERUM 0.72 mg/dL (0.57-1.11); EST GLOMERULAR FILTRATION RATE > 60 ML/MIN (60-); GLUCOSE 77 mg/dL (74-118); POTASSIUM 4.6 mmol/L (3.5-5.1); SODIUM 140 mmol/L (136-145)
[2019-07-07] MEDS ORDERED: ENOXAPARIN SOD INJ 40 MG/0.4 ML SYR SC SCH (09:00)
--- NOTE | 2019-07-07 15:08 | NUR ---
Pt having premature heartbeats on monitor, Dr. Omayra Curtis notified. EKG ordered and completed. Per Dr. Omayra Curtis pt ok to be discharged at 1500. Pt is persistently requesting to be taken off monitor to change into regular clothes and requesting IV to be removed. Dr. Curtis notified and stated that is ok. Pt removed from monitor and PIV removed (see vital signs taken prior to discharge). Dr. Zambrano updated on pt status. Pt informed to follow up with Dr. Zambrano in 2 weeks, continue to use ice pack, keep incision clean and dry, as well as monitor for s/s of infection. Prescriptions given for tylenol #3 and bacitracin ointment. Pt educated on how to keep surgical site clean, dry and apply ointment. Pt discharged at 1500. Daughter in law to drive pt home today.
--- NOTE | 2019-07-07 16:55 | Progress Note ---
DATE: 07/07/2019 SUBJECTIVE: The patient has no complaints. She is very eager to go home. PHYSICAL EXAMINATION: VITAL SIGNS: Stable. CARDIAC: Reveals regular rate and rhythm with normal S1, S2. LUNGS: Auscultation of lungs reveals clear breath sounds bilaterally. There is no wheezing. ABDOMEN: Soft, nontender. There is no rebound or guarding. IMPRESSION: 1. Chronic obstructive pulmonary disease. 2. Hypertension. 3. Recent carotid endarterectomy. PLAN: 1. Discharge home today. 2. Continue current home medications. 3. Rescue inhaler as needed. 4. Follow up with Dr. Zambrano in 2 weeks. Rosendo Curtis MD [facility]ANS /[id number]
--- NOTE | 2019-07-13 21:38 | Operative Report ---
DATE OF PROCEDURE: 07/06/2019 SURGEON: Abiodun Zambrano MD FARM INSTRUCTOR: Ovi Arriola MD. PREOPERATIVE DIAGNOSES: 1. Severe recurrent right carotid stenosis. 2. Status post right carotid endarterectomy in the past. POSTOPERATIVE DIAGNOSES: 1. Severe recurrent right carotid stenosis. 2. Status post right carotid endarterectomy in the past. TITLE OF OPERATION: Redo right carotid endarterectomy. DESCRIPTION OF OPERATION: After the satisfactory accomplishment of general anesthesia, the patient's right neck was prepped and draped in sterile fashion. A standard right carotid incision was performed along the old scar of the prior right carotid endarterectomy. The incision was carried down through the muscles, fascia, and scar tissue to expose the right common carotid artery. The vessel was dissected free from the surrounding tissues and looped with a vessel loop. The dissection was carried distally to expose the internal carotid artery and the external carotid artery and its branches. Care was taken to identify and preserve all nerve structures in the region. Systemic heparin was given through a central vein canula for the purposes of anticoagulation. The common, external, and internal carotid arteries were briefly crossclamped. A long incision was made in the common carotid artery and carried through the bifurcation and well up into the internal carotid artery. A severely obstructing highly ulcerated recurrent plaque was seen at the carotid bulb in the distal portion of the common carotid artery, there was some hemorrhage into the plaque. The plaque was removed along with all of the other recurrence and scar tissue in the previous endarterectomy site. An indwelling shunt was placed in the common carotid artery proximally and the internal carotid artery distally thereby re-establishing blood flow to the right side of the brain for the remainder of the case. The surface of the vessel was then carefully smoothed and all loose debris was carefully removed. Heparinized saline flushes were routinely employed. A previously constructed pericardial patch was brought into the operative field. The patch was used to close the arteriotomy site. Running 7-0 Prolene was used for this patch closure. Prior to completing the closure, the shunt was removed and the vessel was flushed free from all air and debris. Once the sutures were tied, excellent pulses were located within the patch area and beyond. Protamine was given to counteract the effects of the heparin. All bleeding points were cauterized, ligated or oversewn. The wound was thoroughly irrigated with antibiotic solution and closed in layers with interrupted 2-0 Vicryl for the deep tissues, running 2-0 Vicryl for the subcutaneous tissues and a Monocryl subcuticular stitch for the skin. The patient tolerated the procedure well and was returned to the intensive care unit in good condition. MD ANA Gonzales/EVANS /[id number]
== END 2019-07-07 15:00 | disposition home or self-care (01) | DRG 39 ==
LOC: OR 05:17 → PACU V 10:20 → ICU 12:22
PROVIDERS: ADMIT Thoracic Surgery (Cardiothoracic Vascular Surgery); ATTEND Thoracic Surgery (Cardiothoracic Vascular Surgery)
PROC: 03UH0JZ Supplement Right Common Carotid Artery with Synthetic Substitute, Open Approach (ICD-10-PCS; 2019-07-06)
PROC: 03CH0ZZ Extirpation of Matter from Right Common Carotid Artery, Open Approach (ICD-10-PCS; principal; 2019-07-06 07:30)
DX: I65.21 Occlusion and stenosis of right carotid artery (principal); J44.9 Chronic obstructive pulmonary disease, unspecified; I10 Essential (primary) hypertension; I73.9 Peripheral vascular disease, unspecified
CPT/HCPCS: 36415; 80048; 80053; 85025; 85610; 85730; 86850; 86900; 86920; 88304; 93005; C1768; J0360; J1100; J1644; J1650; J1885; J2001; J2250; J2270; J2405; J2720; J3010; J3370; J7030; J7040

== ENCOUNTER → 2019-10-06 | Outpatient (CLI) | payer MEDICARE ==
[2019-10-06 12:05] LABS: BASOPHILS % 0.6 % (0.0-1.0); EOSINOPHILS # (AUTO) 0.1 (0.0-0.4); EOSINOPHILS % 0.9 % (0.0-6.0); HEMOGLOBIN 15.1 g/dL (12.0-16.0); LYMPHOCYTES # (AUTO) 1.6 (1.0-3.2); LYMPHOCYTES % 22.7 % (18.0-39.1); MEAN CORPUSCULAR HEMOGLOBIN 26.4 pg (28-32); MEAN CORPUSCULAR HGB CONC 30.8 g/dL (31-35); MEAN CORPUSCULAR VOLUME 85.5 fL (81-99); MONOCYTES # (AUTO) 0.5 (0.2-0.8); MONOCYTES % 6.7 % (4.4-11.3); NEUTROPHILS # (AUTO) 4.7 (2.1-6.9); NEUTROPHILS % 68.8 % (38.7-80.0); PLATELET COUNT 161 x10e3/uL (140-360); RED BLOOD COUNT 5.73 x10e6/uL (3.6-5.1); RED CELL DISTRIBUTION WIDTH 14.2 % (11.7-14.4)
--- NOTE | 2019-10-06 12:06 | Diagnostic Imaging Report ---
X-ray chest PA and lateral History: Preop Comparison: 06/20/2019 Findings: Emphysema. Heart size normal. Atherosclerotic aorta. No pleural effusion. No pneumothorax. An 11 mm ovoid opacity in the right midlung zone. Unchanged compared with the prior exam. No focal lung disease otherwise. Skeletal structures are remarkable for degenerative changes of the thoracic spine. Upper abdomen unremarkable. Surgical danny in the lower right neck. Impression: No acute cardiopulmonary disease. Whenever possible, the right mid lung zone opacity should be compared with the older exams. Chest CT may also be considered for further evaluation. Signed by: Zach Elkins MD on 10/06/2019 12:03 PM
[2019-10-06 12:28] LABS: ANION GAP 15.1 mmol/L (8-16); BLOOD UREA NITROGEN 14 mg/dL (7-26); BUN/CREATININE RATIO 20 (6-25); CALCIUM 10.1 mg/dL (8.4-10.2); CARBON DIOXIDE 28 mmol/L (22-29); CHLORIDE 106 mmol/L (98-107); EST GLOMERULAR FILTRATION RATE > 60 ML/MIN (60-); GLUCOSE 98 mg/dL (74-118); POTASSIUM 4.1 mmol/L (3.5-5.1); SODIUM 145 mmol/L (136-145)
--- NOTE | 2019-10-06 15:20 | Diagnostic Imaging Report ---
CT of the abdomen and pelvis. Comparison: None Clinical History: Weight loss Technique: Helical CT scan of the abdomen and pelvis was performed. Intravenous contrast administration was utilized. Oral contrast administration was utilized. Coronal and sagittal reconstructions were generated from the raw data. Multiple images were submitted for interpretation. This exam was performed according to our departmental dose-optimization program which includes automated exposure control, adjustment of the mA and/or kV according to patient size. Discussion: Inferior chest: Unremarkable. Liver: Unremarkable Spleen: Unremarkable Pancreas: Unremarkable Biliary tree and gallbladder: Unremarkable Adrenal glands: Unremarkable Kidneys and ureters: Multiple simple cortical renal cysts bilaterally otherwise unremarkable Vasculature: Atherosclerotic aorta and its branches. There is a fusiform infrarenal abdominal aortic aneurysm with plaque on its domingo. It measures 34 mm transverse x 34.5 mm AP. It is approximately 14 mm in craniocaudad dimension. Immediately below this there is dense calcific atherosclerosis of aorta with a focal aortic stenosis. The distal abdominal aorta and common iliac arteries show atherosclerosis but apparently no luminal compromise. Lymph nodes: No lymphadenopathy Bowel: Colonic diverticulosis without diverticulitis involving sigmoid colon. Otherwise the bowel is unremarkable. Pelvis: Urinary bladder is unremarkable. The patient seems to be status post hysterectomy and bilateral salpingo-oophorectomy. Pelvic wall unremarkable. Peritoneum: Unremarkable Perineal compartments: unremarkable. Fluid: No free intraperitoneal fluid or air. Bones: Osteopenia and degenerative changes. Body wall: Unremarkable Impression: A short infrarenal saccular abdominal aortic aneurysm with infrarenal aneurysmal focal aortic stenosis as described. Signed by: Zach Elkins MD on 10/06/2019 3:17 PM
== END ==
LOC: CT 11:03
PROVIDERS: ATTEND Surgery
DX: R10.9 Unspecified abdominal pain (principal); R63.4 Abnormal weight loss
CPT/HCPCS: 36415; 71046; 74177; 80048; 85025

== ENCOUNTER → 2019-10-10 | Day surgery (SDC) | payer MEDICARE, OTHER ==
[~2019-10-10] MED LIST changes: +LIDOCAINE HCL 2% LOCAL INJ 5 ML SDV VIAL INJ ONE; +PROPOFOL IV EMULSION 10 MG/ML 20 ML VIAL ONE
[2019-10-10 08:09] LABS: BASOPHILS % 0.5 % (0.0-1.0); EOSINOPHILS # (AUTO) 0.1 (0.0-0.4); EOSINOPHILS % 1.2 % (0.0-6.0); HEMATOCRIT 45.2 % (34.2-44.1); LYMPHOCYTES # (AUTO) 1.3 (1.0-3.2); LYMPHOCYTES % 21.6 % (18.0-39.1); MEAN CORPUSCULAR HEMOGLOBIN 25.9 pg (28-32); MEAN CORPUSCULAR VOLUME 83.7 fL (81-99); MONOCYTES # (AUTO) 0.4 (0.2-0.8); MONOCYTES % 7.1 % (4.4-11.3); NEUTROPHILS % 69.4 % (38.7-80.0); PLATELET COUNT 138 x10e3/uL (140-360); RED CELL DISTRIBUTION WIDTH 14.6 % (11.7-14.4)
[2019-10-10 08:39] LABS: PLATELET ESTIMATE SLIGHTLY DECREASED
[2019-10-10 10:52] VITALS: BP 124/62
== END | disposition home or self-care (01) ==
LOC: OR 06:36
PROVIDERS: ATTEND Surgery
DX: K29.70 Gastritis, unspecified, without bleeding (principal); D12.2 Benign neoplasm of ascending colon; K29.80 Duodenitis without bleeding; K58.9 Irritable bowel syndrome, unspecified; K44.9 Diaphragmatic hernia without obstruction or gangrene; K57.30 Diverticulosis of large intestine without perforation or abscess without bleeding; K62.5 Hemorrhage of anus and rectum; R63.4 Abnormal weight loss; I25.2 Old myocardial infarction; I25.10 Atherosclerotic heart disease of native coronary artery without angina pectoris; Z95.5 Presence of coronary angioplasty implant and graft; I10 Essential (primary) hypertension; F03.90 Unspecified dementia, unspecified severity, without behavioral disturbance, psychotic disturbance, mood disturbance, and anxiety; F17.210 Nicotine dependence, cigarettes, uncomplicated; Z88.0 Allergy status to penicillin; Z01.810 Encounter for preprocedural cardiovascular examination; Z01.812 Encounter for preprocedural laboratory examination; Z11.59 Encounter for screening for other viral diseases
CPT/HCPCS: 36415; 43239; 45385; 85025; 87635; 88305; 88312; 93005; J2001; J2704; 45378

== ENCOUNTER → 2019-12-28 | Outpatient (CLI) | payer MEDICARE, OTHER ==
[~2019-12-28] MED LIST changes: -LIDOCAINE HCL 2% LOCAL INJ 5 ML SDV VIAL INJ ONE; -PROPOFOL IV EMULSION 10 MG/ML 20 ML VIAL ONE
--- NOTE | 2019-12-28 14:56 | Diagnostic Imaging Report ---
Thyroid Ultrasound Clinical Diagnosis: Thyroid mass right lobe Comparison: None Technique: Multiple images were submitted for interpretation. Multiple longitudinal and transaxial images were performed with a high frequency linear transducer. Report: Right lobe: The right lobe measures 5 x 1.8 x 2.8 cm. The texture is heterogeneous. There is one nodule superiorly and laterally that measures 1.48 cm craniocaudad x 1.31 cm AP x 1.42 cm transverse. The nodule is solid, hyperechoic compared to the thyroid parenchyma, has smooth margins and has no calcifications. This is TI-RADS level for nodule. There is moderately suspicious. It should be follow-up with imaging at 1, 2, 3 and 5 years. There is another large nodule in the lower part of the right lobe that measures 3.65 cm craniocaudad x 2.60 cm AP x 2.95 cm transverse. This nodule is solid, isoechoic compared with the surrounding thyroid parenchyma, taller than wide, with smooth margins and macrocalcifications. This is TI-RADS level 5. Highly suspicious. It should be subjected to FNA. Left lobe: The left lobe measures 3.9 x 1.7 x 1.9 cm. The texture is heterogeneous. There is a nodule measuring 2.56 cm craniocaudad x 1.70 cm AP x 1.56 cm transverse. The nodule is solid, hyperechoic or acholic/isoechoic compared to the surrounding parenchyma, with smooth margins and no calcifications. It is TI-RADS 4, moderately suspicious. FNA should be performed. The isthmus measures 5 mm. Impression: Bilateral thyroid nodules with recommendations mentioned above. FNA should be performed for the lower nodule in the right lobe and the nodule in the left lobe. Signed by: Zach Elkins MD on 12/28/2019 2:52 PM
== END ==
LOC: US 13:37
PROVIDERS: ATTEND Surgery
DX: E07.9 Disorder of thyroid, unspecified (principal)
CPT/HCPCS: 76536

== ENCOUNTER 2020-07-20 08:46 | Inpatient (IN) | payer MEDICARE ==
[~2020-07-20] VITALS: Ht 167.6 cm; Wt 44.0 kg
[2020-07-20] MEDS ORDERED: ASPIRIN 81 MG CHEW TAB PO ONE (09:00)
[2020-07-20 09:11] LABS: BASOPHILS % 0.3 % (0.0-1.0); EOSINOPHILS % 0.1 % (0.0-6.0); HEMATOCRIT 42.4 % (34.2-44.1); HEMOGLOBIN 13.5 g/dL (12.0-16.0); LYMPHOCYTES # (AUTO) 1.1 (1.0-3.2); LYMPHOCYTES % 11.2 % (18.0-39.1); MEAN CORPUSCULAR HEMOGLOBIN 26.6 pg (28-32); MEAN CORPUSCULAR HGB CONC 31.8 g/dL (31-35); MEAN CORPUSCULAR VOLUME 83.5 fL (81-99); MONOCYTES # (AUTO) 0.8 (0.2-0.8); MONOCYTES % 8.1 % (4.4-11.3); NEUTROPHILS # (AUTO) 7.7 (2.1-6.9); NEUTROPHILS % 79.8 % (38.7-80.0); PLATELET COUNT 128 x10e3/uL (140-360); RED BLOOD COUNT 5.08 x10e6/uL (3.6-5.1); RED CELL DISTRIBUTION WIDTH 14.1 % (11.7-14.4)
[2020-07-20 09:24] LABS: ALANINE AMINOTRANSFERASE 13 IU/L (0-55); ALBUMIN/GLOBULIN RATIO 1.2 (0.8-2.0); ALKALINE PHOSPHATASE 134 IU/L (40-150); ANION GAP 17.8 mmol/L (8-16); BLOOD UREA NITROGEN 17 mg/dL (7-26); BUN/CREATININE RATIO 20 (6-25); CALCIUM 9.2 mg/dL (8.4-10.2); CARBON DIOXIDE 25 mmol/L (22-29); CHLORIDE 99 mmol/L (98-107); CREATINE KINASE 78 IU/L (29-168); CREATININE, SERUM 0.84 mg/dL (0.57-1.11); EST GLOMERULAR FILTRATION RATE > 60 ML/MIN (60-); GLUCOSE 140 mg/dL (74-118); POTASSIUM 3.8 mmol/L (3.5-5.1); SODIUM 138 mmol/L (136-145)
[2020-07-20] MEDS ORDERED: PROTONIX20 MG PO (12:29)
[2020-07-20] MEDS ORDERED: DIGOXIN 0.25 MG TAB PO NR (12:30)
[2020-07-20 13:04] VITALS: BP 149/82
[2020-07-20] MEDS: AMIODARONE HCL 200 MG TAB PO SCH ×3 (13:23→21:41)
[2020-07-20] MEDS: METOPROLOL TARTRATE 25 MG TAB PO SCH ×2 (13:24→18:22)
[2020-07-20] MEDS: ENOXAPARIN SOD INJ 40 MG/0.4 ML SYR SC SCH ×2 (13:25→21:41)
[2020-07-20 15:03] VITALS: BP 149/82
[2020-07-20 15:09] VITALS: BP 149/82
[2020-07-20 17:21] LABS: CREATINE KINASE MB 1.6 ng/mL (0-5.0)
[2020-07-20 17:41] VITALS: BP 114/65
[2020-07-20 20:00] VITALS: BP 150/86
[2020-07-20 21:00] VITALS: BP 150/86
[2020-07-20] MEDS ORDERED: HYDRALAZINE HCL 20 MG/ML VIAL IV PRN (21:15)
[2020-07-21] VITALS: BP 126/86
[2020-07-21] MEDS: METOPROLOL TARTRATE 25 MG TAB PO SCH ×4 (01:00→18:34)
[2020-07-21 08:00] VITALS: BP 122/103
[2020-07-21 08:13] LABS: BASOPHILS % 0.2 % (0.0-1.0); EOSINOPHILS % 0.1 % (0.0-6.0); HEMATOCRIT 41.4 % (34.2-44.1); LYMPHOCYTES # (AUTO) 0.8 (1.0-3.2); MEAN CORPUSCULAR HEMOGLOBIN 26.7 pg (28-32); MEAN CORPUSCULAR HGB CONC 31.4 g/dL (31-35); MONOCYTES # (AUTO) 0.7 (0.2-0.8); MONOCYTES % 7.2 % (4.4-11.3); NEUTROPHILS # (AUTO) 7.8 (2.1-6.9); PLATELET COUNT 121 x10e3/uL (140-360); RED BLOOD COUNT 4.87 x10e6/uL (3.6-5.1); RED CELL DISTRIBUTION WIDTH 13.9 % (11.7-14.4)
[2020-07-21 08:57] LABS: ALANINE AMINOTRANSFERASE 14 IU/L (0-55); ALBUMIN 3.2 g/dL (3.5-5.0); ALBUMIN/GLOBULIN RATIO 1.1 (0.8-2.0); ALKALINE PHOSPHATASE 112 IU/L (40-150); ANION GAP 17.4 mmol/L (8-16); BLOOD UREA NITROGEN 26 mg/dL (7-26); BUN/CREATININE RATIO 37 (6-25); CALCIUM 8.5 mg/dL (8.4-10.2); CARBON DIOXIDE 22 mmol/L (22-29); CHLORIDE 101 mmol/L (98-107); CREATININE, SERUM 0.71 mg/dL (0.57-1.11); EST GLOMERULAR FILTRATION RATE > 60 ML/MIN (60-); GLUCOSE 95 mg/dL (74-118); POTASSIUM 4.4 mmol/L (3.5-5.1); SODIUM 136 mmol/L (136-145)
[2020-07-21 09:00] VITALS: BP 122/103
[2020-07-21] MEDS: ENOXAPARIN SOD INJ 40 MG/0.4 ML SYR SC SCH ×2 (09:00→22:09)
[2020-07-21] MEDS: AMIODARONE HCL 200 MG TAB PO SCH ×4 (09:00→22:06)
[2020-07-21] MEDS: PANTOPRAZOLE SOD 40 MG TABEC PO SCH (09:00)
[2020-07-21 09:17] LABS: MAGNESIUM 1.9 MG/DL (1.3-2.1); THYROID STIMULATING HORMONE 3.729 uIU/mL (0.350-4.940)
[2020-07-21 09:46] LABS: CREATINE KINASE MB 1.8 ng/mL (0-5.0)
[2020-07-21] MEDS: CEFTRIAXONE SOD 1 GM in SODIUM CHLORIDE 0.9% 50ML 50 ML IV SCH (10:00)
[2020-07-21 10:03] VITALS: BP 149/94
[2020-07-21] MEDS ORDERED: IOPAMIDOL 370 MG/ML 200 ML INFUS..BTL INJ ONE (11:00)
[2020-07-21] MEDS ORDERED: SODIUM CHLORIDE 0.9% 50ML 50 ML ONE (11:00)
[2020-07-21] MEDS ORDERED: SODIUM CHLORIDE 0.9% 100 ML ONE (11:19)
[2020-07-21 18:17] LABS: CREATINE KINASE MB 2.2 ng/mL (0-5.0)
[2020-07-21] MEDS: MIRTAZAPINE 15 MG TAB PO SCH (19:00)
[2020-07-21 20:00] VITALS: BP 114/97
[2020-07-21 21:00] VITALS: BP 114/97
[2020-07-22] VITALS (8 sets, daily range): BP systolic 110–146; BP diastolic 57–98
[2020-07-22] MEDS: AMIODARONE HCL 200 MG TAB PO SCH ×3 (09:17→21:21)
[2020-07-22] MEDS: CEFTRIAXONE SOD 1 GM in SODIUM CHLORIDE 0.9% 50ML 50 ML IV SCH (09:18)
[2020-07-22] MEDS: METOPROLOL TARTRATE 25 MG TAB PO SCH ×2 (09:18→16:48)
[2020-07-22] MEDS: PANTOPRAZOLE SOD 40 MG TABEC PO SCH (09:18)
[2020-07-22] MEDS: ENOXAPARIN SOD INJ 40 MG/0.4 ML SYR SC SCH (09:18)
[2020-07-22] MEDS: APIXAB 2.5 MG TABLET PO SCH (16:34)
[2020-07-22] MEDS: MIRTAZAPINE 15 MG TAB PO SCH (19:48)
[2020-07-23] VITALS: BP 160/56
[2020-07-23 04:00] VITALS: BP 146/89
[2020-07-23] MEDS: PANTOPRAZOLE SOD 40 MG TABEC PO SCH (08:10)
[2020-07-23] MEDS: AMIODARONE HCL 200 MG TAB PO SCH (08:11)
[2020-07-23] MEDS: METOPROLOL TARTRATE 25 MG TAB PO SCH (08:11)
[2020-07-23] MEDS: APIXAB 2.5 MG TABLET PO SCH (08:11)
[2020-07-23 08:12] VITALS: BP 140/63
[2020-07-23 08:14] VITALS: BP 140/63
[2020-07-23] MEDS ORDERED: ELIQUIS2.5 MG PO (09:33)
[2020-07-23] MEDS ORDERED: AMIODARONE HCL200 MG PO (09:33)
[2020-07-23] MEDS ORDERED: METOPROLOL TART25 MG PO (09:34)
[2020-07-23] MEDS ORDERED: REMERON15 MG PO (09:35)
[2020-07-23] MEDS ORDERED: OMEPRAZOLE40 MG PO (09:35)
[2020-07-23] MEDS ORDERED: ZOFRAN4 MG SL (09:36)
[2020-07-23] MEDS: CEFTRIAXONE SOD 1 GM in SODIUM CHLORIDE 0.9% 50ML 50 ML IV SCH (10:00)
== END 2020-07-23 10:12 | disposition home or self-care (01) | DRG 308 ==
LOC: ER 08:50 → ERHOLD 09:54 → MED/SURG3 12:20 → OBSVTOIN 21:14 → MED/SURG3 07-21 03:08
PROVIDERS: ADMIT Internal Medicine; ATTEND Internal Medicine
DX: I48.0 Paroxysmal atrial fibrillation (principal); J18.9 Pneumonia, unspecified organism; J44.0 Chronic obstructive pulmonary disease with (acute) lower respiratory infection; Z68.1 Body mass index [BMI] 19.9 or less, adult; I50.22 Chronic systolic (congestive) heart failure; K90.41 Non-celiac gluten sensitivity; I25.2 Old myocardial infarction; Z88.0 Allergy status to penicillin; F17.210 Nicotine dependence, cigarettes, uncomplicated; I25.10 Atherosclerotic heart disease of native coronary artery without angina pectoris; J20.9 Acute bronchitis, unspecified; Z95.5 Presence of coronary angioplasty implant and graft; I20.9 Angina pectoris, unspecified; I73.9 Peripheral vascular disease, unspecified; I71.4 Abdominal aortic aneurysm, without rupture; F32.9 Major depressive disorder, single episode, unspecified; R63.0 Anorexia; Z20.822 Contact with and (suspected) exposure to COVID-19; I27.20 Pulmonary hypertension, unspecified; I11.0 Hypertensive heart disease with heart failure; R53.81 Other malaise; R63.4 Abnormal weight loss; E73.9 Lactose intolerance, unspecified
CPT/HCPCS: 36415; 71045; 71260; 74177; 80053; 80061; 82270; 82550; 82553; 82948; 83036; 83735; 84100; 84443; 84484; 85025; 93005; 93306; 99284; J0696; J1650; J7050; Q9967; U0002

== ENCOUNTER → 2020-07-29 | Outpatient (CLI) | payer MEDICARE ==
[~2020-07-29] MED LIST changes: +AMIODARONE HCL200 MG PO; +ELIQUIS2.5 MG PO; +METOPROLOL TART25 MG PO; +OMEPRAZOLE40 MG PO; +PROTONIX20 MG PO; +REMERON15 MG PO; +ZOFRAN4 MG SL
[2020-07-29 16:18] LABS: BASOPHILS % 0.4 % (0.0-1.0); EOSINOPHILS % 0.2 % (0.0-6.0); HEMATOCRIT 40.2 % (34.2-44.1); HEMOGLOBIN 12.7 g/dL (12.0-16.0); LYMPHOCYTES # (AUTO) 0.9 (1.0-3.2); LYMPHOCYTES % 11.1 % (18.0-39.1); MEAN CORPUSCULAR HEMOGLOBIN 26.5 pg (28-32); MEAN CORPUSCULAR HGB CONC 31.6 g/dL (31-35); MEAN CORPUSCULAR VOLUME 83.8 fL (81-99); MONOCYTES # (AUTO) 0.6 (0.2-0.8); MONOCYTES % 7.3 % (4.4-11.3); NEUTROPHILS # (AUTO) 6.5 (2.1-6.9); NEUTROPHILS % 80.5 % (38.7-80.0); PLATELET COUNT 147 x10e3/uL (140-360); RED CELL DISTRIBUTION WIDTH 14.6 % (11.7-14.4)
[2020-07-29 16:48] LABS: ANION GAP 14.9 mmol/L (8-16); BLOOD UREA NITROGEN 26 mg/dL (7-26); BUN/CREATININE RATIO 32 (6-25); CALCIUM 8.4 mg/dL (8.4-10.2); CARBON DIOXIDE 25 mmol/L (22-29); CHLORIDE 104 mmol/L (98-107); CREATININE, SERUM 0.82 mg/dL (0.57-1.11); EST GLOMERULAR FILTRATION RATE > 60 ML/MIN (60-); GLUCOSE 137 mg/dL (74-118); POTASSIUM 3.9 mmol/L (3.5-5.1); SODIUM 140 mmol/L (136-145)
== END ==
LOC: RAD 15:21
PROVIDERS: ATTEND Internal Medicine
DX: M79.662 Pain in left lower leg (principal); M25.562 Pain in left knee; M25.572 Pain in left ankle and joints of left foot; M79.89 Other specified soft tissue disorders; W19.XXXA Unspecified fall, initial encounter
CPT/HCPCS: 36415; 80048; 82270; 85025

== ENCOUNTER → 2020-08-01 | Outpatient (CLI) | payer MEDICARE | LOC: RAD 11:05 | PROVIDERS: ATTEND Internal Medicine | DX: M79.662 Pain in left lower leg (principal); M25.572 Pain in left ankle and joints of left foot; R60.9 Edema, unspecified; W19.XXXA Unspecified fall, initial encounter | CPT/HCPCS: 93971 ==